=== PATIENT | female | born 1990 | race Two or more races ===

== ENCOUNTER → 2024-11-29 11:35 | Outpatient (CLI) | payer OTHER | END | disposition home or self-care (01) | LOC: PRENATAL 11:35 | PROVIDERS: ATTEND Obstetrics & Gynecology Maternal & Fetal Medicine | DX: O44.00 Complete placenta previa NOS or without hemorrhage, unspecified trimester (principal); O09.529 Supervision of elderly multigravida, unspecified trimester; O28.3 Abnormal ultrasonic finding on antenatal screening of mother; Z3A.23 23 weeks gestation of pregnancy ==

== ENCOUNTER 2024-12-07 11:04 | Outpatient (CLI) | payer OTHER | END 2024-12-07 11:05 | disposition home or self-care (01) | LOC: PRENATAL 11:04 | PROVIDERS: ATTEND Obstetrics & Gynecology Maternal & Fetal Medicine | DX: O26.843 Uterine size-date discrepancy, third trimester (principal); O09.523 Supervision of elderly multigravida, third trimester; O28.3 Abnormal ultrasonic finding on antenatal screening of mother; Z3A.25 25 weeks gestation of pregnancy ==

== ENCOUNTER → 2024-12-07 13:14 | Outpatient (CLI) | payer OTHER | END | disposition home or self-care (01) | LOC: LAB 13:14 | PROVIDERS: ATTEND Obstetrics & Gynecology Maternal & Fetal Medicine | DX: O28.5 Abnormal chromosomal and genetic finding on antenatal screening of mother (principal); O28.3 Abnormal ultrasonic finding on antenatal screening of mother ==

== ENCOUNTER 2024-12-20 07:45 | Outpatient (CLI) | payer OTHER | END 2024-12-20 07:46 | disposition home or self-care (01) | LOC: PRENATAL 07:45 | PROVIDERS: ATTEND Obstetrics & Gynecology Maternal & Fetal Medicine | DX: O26.842 Uterine size-date discrepancy, second trimester (principal); O09.522 Supervision of elderly multigravida, second trimester; O28.3 Abnormal ultrasonic finding on antenatal screening of mother; O34.12 Maternal care for benign tumor of corpus uteri, second trimester; Z3A.26 26 weeks gestation of pregnancy ==

== ENCOUNTER 2025-01-11 14:55 | Outpatient (CLI) | payer OTHER | END 2025-01-11 14:58 | disposition home or self-care (01) | LOC: PRENATAL 14:55 | PROVIDERS: ATTEND Obstetrics & Gynecology Maternal & Fetal Medicine | DX: O26.843 Uterine size-date discrepancy, third trimester (principal); O36.8130 Decreased fetal movements, third trimester, not applicable or unspecified; O09.523 Supervision of elderly multigravida, third trimester; O28.3 Abnormal ultrasonic finding on antenatal screening of mother; Z3A.30 30 weeks gestation of pregnancy ==

== ENCOUNTER → 2025-02-07 13:40 | Outpatient (CLI) | payer OTHER | END | disposition home or self-care (01) | LOC: PRENATAL 13:40 | PROVIDERS: ATTEND Obstetrics & Gynecology Maternal & Fetal Medicine | DX: O26.843 Uterine size-date discrepancy, third trimester (principal); O36.8130 Decreased fetal movements, third trimester, not applicable or unspecified; O09.523 Supervision of elderly multigravida, third trimester; O28.3 Abnormal ultrasonic finding on antenatal screening of mother; O32.9XX0 Maternal care for malpresentation of fetus, unspecified, not applicable or unspecified; Z3A.34 34 weeks gestation of pregnancy ==